=== PATIENT | male | born 1965 | race Caucasian/White ===

== ENCOUNTER 2016-12-23 08:15 | Day surgery (SDC) | payer OTHER ==
[~2016-12-23] VITALS: Ht 180.3 cm; Wt 117.0 kg
== END 2016-12-23 10:20 | disposition short-term general hospital (02) ==
LOC: SURGOP 08:15
PROC: 0DBE8ZZ Excision of Large Intestine, Via Natural or Artificial Opening Endoscopic (ICD-10-PCS; principal; 2016-12-23)
DX: Z12.11 Encounter for screening for malignant neoplasm of colon (principal); K63.5 Polyp of colon; Z90.49 Acquired absence of other specified parts of digestive tract; E66.9 Obesity, unspecified; Z68.37 Body mass index [BMI] 37.0-37.9, adult
CPT/HCPCS: J2175; J2250